=== PATIENT | male | born 1995 | race Caucasian/White ===

== ENCOUNTER 2019-04-27 22:09 | Emergency (ER) | payer OTHER ==
[2019-04-27] MEDS ORDERED: ONDANSETRON ODT 4 MG TAB PO STA (22:45)
[2019-04-27] MEDS ORDERED: MAG HYDROX/AL HYDROX/SIMETH 30 ML, HYOSCYAMINE ELIXIR 10 ML, LIDOCAINE VISCOUS 2% 10 ML PO STA ×3 (22:45)
--- NOTE | 2019-04-27 22:45 | ED ---
Chest Pain HPI - General Chief Complaint: Chest Pain Stated Complaint: Chest Pain Time Seen by Provider: 04/27/19 22:25 Source: patient, RN notes reviewed, old records reviewed Mode of arrival: wheelchair Limitations: no limitations - History of Present Illness Initial Comments: This is a 23-year-old male here for evaluation of bloating abdominal discomfort chest pain nausea episode of vomiting. Symptoms are worse when he takes a deep breath. Symptoms began this night lower, computer much improved currently. Patient states he went to the bathroom did vomit became little diaphoretic symptoms are resolved. No history of heart disease no drugs or alcohol abuse. Patient has no significant medical history himself no recent fevers or illnesses MD Complaint: chest pain -: minutes(s) Onset: during rest Pain Location: substernal Severity: moderate Severity scale (1-10): 4 Consistency: constant, now resolved Anginal Symptoms: nausea, vomiting Other Symptoms: palpitations, burping Treatments Prior to Arrival: none - Related Data Allergies Allergy/AdvReac Type Severity Reaction Status Date / Time No Known Allergies Allergy Verified 04/27/19 22:14 Review of Systems ROS Statement: Those systems with pertinent positive or pertinent negative responses have been documented in the HPI. ROS Other: All systems not noted in ROS Statement are negative. EKG Findings - EKG Comments: EKG Findings:: EKG shows sinus rhythm rate of 89, IN 156 QRS 78, QTC 418 Past Medical History Past Medical History: No Reported History History of Any Multi-Drug Resistant Organisms: None Reported Past Surgical History: Orthopedic Surgery Additional Past Surgical History / Comment(s): acl repair Past Psychological History: Anxiety Smoking Status: Never smoker Past Alcohol Use History: Occasional Past Drug Use History: None Reported General Exam Limitations: no limitations General appearance: alert, in no apparent distress Head exam: Present: atraumatic, normocephalic, normal inspection Eye exam: Present: normal appearance, PERRL, EOMI. Absent: scleral icterus, conjunctival injection, periorbital swelling ENT exam: Present: normal exam, mucous membranes moist Neck exam: Present: normal inspection. Absent: tenderness, meningismus, lymphadenopathy Respiratory exam: Present: normal lung sounds bilaterally. Absent: respiratory distress, wheezes, rales, rhonchi, stridor Cardiovascular Exam: Present: regular rate, normal rhythm, normal heart sounds. Absent: systolic murmur, diastolic murmur, rubs, gallop, clicks GI/Abdominal exam: Present: soft, normal bowel sounds. Absent: distended, tenderness, guarding, rebound, rigid Extremities exam: Present: normal inspection, full ROM, normal capillary refill. Absent: tenderness, pedal edema, joint swelling, calf tenderness Back exam: Present: normal inspection Neurological exam: Present: alert, oriented X3, CN II-XII intact Psychiatric exam: Present: normal affect, normal mood Skin exam: Present: warm, dry, intact, normal color. Absent: rash Course Vital Signs 04/27/19 04/27/19 22:11 23:04 Temperature 97.9 F Pulse Rate 92 96 Respiratory 20 18 Rate Blood Pressure 111/70 136/77 O2 Sat by Pulse 100 98 Oximetry - Reevaluation(s) Reevaluation #1: 04/27/19 23:50 Medical records reviewed. Reevaluation #2: 04/27/19 23:50 Does improve here in the ER Reevaluation #3: 04/27/19 23:50 Patient is informed of results 04/27/19 23:50 Questions answered, patient returns symptoms worsen feels good with discharge Chest Pain MDM - MDM 23-year-old male with nonspecific chest pain likely reflux in nature worse with palpation increased abdominal bloating symptoms improved and patient can be discharged home normal chest x-ray normal EKG Disposition Clinical Impression: Atypical chest pain, GERD (gastroesophageal reflux disease) Disposition: HOME SELF-CARE Condition: Good Instructions (If sedation given, give patient instructions): Gastroesophageal Reflux Disease (ED) Is patient prescribed a controlled substance at d/c from ED?: No Referrals: None,Stated [Primary Care Provider] - 1-2 days
[2019-04-27] MEDS ORDERED: SIMETHICONE 40 MG/0.6 ML DROPS 2,000 MG/30 ML BOTTLE PO ONE (23:00)
[2019-04-27 23:05] VITALS: RESP 18
--- NOTE | 2019-04-27 23:23 | XR ---
EXAMINATION TYPE: XR chest 2V DATE OF EXAM: 04/27/2019 COMPARISON: NONE HISTORY: Chest pain TECHNIQUE: FINDINGS: Heart and mediastinum are normal. Lungs are clear. Diaphragm is normal. Bony thorax appears normal. IMPRESSION: Normal chest
[2019-04-28 00:10] VITALS: BP 120/64; PULSE 71; TEMP 98.1
== END 2019-04-28 00:10 | disposition home or self-care (01) ==
LOC: EC 22:09
DX: K21.9 Gastro-esophageal reflux disease without esophagitis (principal); R00.2 Palpitations; R14.0 Abdominal distension (gaseous)
CPT/HCPCS: 71046; 99285